=== PATIENT | male | born 1955 ===

== ENCOUNTER → 2020-09-26 09:09 | Outpatient (CLI) | payer BC, SELFPAY ==
[2020-09-26 17:04] LABS: SARS-CoV-2 RNA PCR Negative
== END ==
PROVIDERS: PCP Emergency Medicine; Visit Provider Emergency Medicine
DX: Z20.822 Contact with and (suspected) exposure to COVID-19 (principal); R05 Cough
CPT/HCPCS: C9803; U0003; U0005

== ENCOUNTER → 2020-12-04 02:23 | Outpatient (CLI) | payer BC, SELFPAY ==
[2020-12-04 17:52] LABS: SARS-CoV-2 RNA PCR Negative
== END ==
PROVIDERS: PCP Emergency Medicine; Visit Provider Internal Medicine Critical Care Medicine
DX: R68.89 Other general symptoms and signs (principal); Z20.822 Contact with and (suspected) exposure to COVID-19
CPT/HCPCS: C9803; U0003; U0005

== ENCOUNTER 2020-12-06 09:21 | Outpatient (CLI) | payer BC, SELFPAY ==
--- NOTE | 2020-12-25 06:48 | WPDSLEEPSTUD ---
Sleep Study Date of Study: 12/06/20 Ordering Provider: Alison Valverde MD Interpreting Physician: Alison Valverde MD Sleep Study Type: Split Polysomnogram Height: 1.98 m Weight: 136.078 kg Body Mass Index: 34.7 Neck Circumference (inches): 17.5 [place]: 5 Reason for Sleep Study Long history of obstructive sleep apnea, now using APAP with good compliance however he is excessive ly sleepy Sleep History Enrico King is a 65 year old man who has had obstructive sleep apnea for over 18 years, and several months ago starting usin an autoPAP with return of his original symptoms including non refreshing sleep and excessive daytime sleepiness. He has excellent compliance. His apnea-hypopnea index is 3.9. He currently is sleepy in the afternoon and takes naps on the weekends when he can. He does not awaken from sleep feeling short of breath. He rarely awakens at night with heartburn, belching or coughing. Without his CPAP he snores constantly. Using his CPAP he never snores. He constantly snores loudly enough that others complain about it without using CPAP. He occasionally has trouble sleeping with a cold. He does not wake up gasping for breath at night. He frequently has breathing problems at night observed by others. He rarely sweats excessively at night. He does not notice his heart pounding or beating irregularly at night. He does not fall asleep during the day, does not fall asleep involuntarily or while driving. He does not fall asleep while exerting physical effort. he does not have loss of muscle tone with strong emotion. He occasionally has daytime difficulties due to excessive sleepiness [facility]. He does not feel paralyzed on waking or falling asleep. He frequently has vivid dreamlike scenes upon awakening or falling asleep. He does not feel afraid to go to sleep. He occasionally has nightmares. He frequently remembers his dreams. He rarely has racing thoughts. He does not feel sad or depressed. He rarely has anxiety. He occasionally has muscular tension and occasionally notices parts of his body jerking. He does not kick at night. He occasionally has crawling aching feelings in his legs and occasionally has leg cramps at night. He does not have morning jaw pain. He rarely grinds his teeth during sleep. He occasionally is bothered by pain during the day. He rarely is awakened by pain at night. He frequently wakes up feeling stiff in the morning. He rarely wakes up with sore achy muscles are pain in the neck and spine. He takes antacids regularly. Normal bedtime is 10:00 p.m. falling asleep within 15 minutes waking once at night to urinate and then he returns to sleep within 5 minutes. He wakes the morning at 6:00 a.m.. On the weekends he stays awake later 10:30 p.m. and wakes at 7 in the morning. He estimates getting 8 hours of sleep at night. He does not generally take naps in the afternoon or evening. A short nap is not refreshing. He is drowsy in the morning for 1 hour or longer. He feels better in the evening compared to the morning. Habits: Never smoked tobacco. Caffeine 3 servings a day. No alcohol or recreational drugs. [facility] Past Medical History Medical History (Updated 12/25/20 @ 07:07 by Alison Valverde MD) Basal cell carcinoma of nose GERD (gastroesophageal reflux disease) HLD (hyperlipidemia) Obstructive sleep apnea Screening PSA (prostate specific antigen) Family History Family History Father Hypertension, Onset Age: 54 Carcinoma of colon, Onset Age: 54 Mother Dementia Social History Social History Smoking status: Never smoker Alcohol intake: current Medications Home Medications Medication Instructions Recorded Confirmed Type aspirin 81 mg tablet,delayed 81 mg PO DAILY 04/29/19 03/23/20 History release cholecalciferol (vitamin D3) 50 2,
[2020-12-25 07:15] VITALS: BMI 34.7
== END 2020-12-07 06:20 | disposition home or self-care (01) ==
LOC: ANHCSM 09:23
PROVIDERS: PCP Emergency Medicine; Visit Provider Internal Medicine Critical Care Medicine
DX: G47.33 Obstructive sleep apnea (adult) (pediatric) (principal)
CPT/HCPCS: 95811

== ENCOUNTER 2021-06-18 11:03 | Inpatient (IN) | payer BC, SELFPAY ==
[2021-06-18] VITALS (17 sets, daily range): BP systolic 92–164; BP diastolic 43–91; PULSE 96–134; RESP 12–27; TEMP 36.6–40.5; O2SAT 95–100
--- NOTE | ~2021-06-18 | CT_ITS ---
EXAMINATION: CT abdomen pelvis wo con EXAM DATE: 06/18/2021 17:14 INDICATION: Urinary pain. History of urinary tract infections. TECHNIQUE: Spiral CT of the abdomen and pelvis was performed without contrast. Axial, coronal and sag ittal images were reviewed. The dose-length product (DLP) for this examination was 806.48 mGy-cm. T he exposure was tailored according to patient size (auto mA exposure control), and iterative reconstr uction (ASIR) was used as additional dose reduction technique. There is no prior study for compariso n. FINDINGS: There is a left renal cyst measuring 8.7 cm. There is no nephrolithiasis or hydronephrosis. There is moderate prostatomegaly, prostate measuring 6.3 cm transverse dimension. Bladder is only m ildly distended. Some diffuse bladder wall thickening, could indicate chronic cystitis. Acute cystiti s not excludable. The liver, spleen, adrenal glands and pancreas are unremarkable. Gallbladder is u nremarkable. No biliary obstruction. There is no retroperitoneal or pelvic lymphadenopathy. There is mild scattered arteriosclerotic disease. The appendix is normal. The stomach and small bowel are unremarkable. There is expected amount of c olonic stool. No free intraperitoneal gas. The heart is normal in size. There are no pericardial or pleural effusions. The lung bases are unremarkable. There are no osteoblastic or osteolytic les ions identified. IMPRESSION: 1. No nephrolithiasis, hydronephrosis or acute intra-abdominal findings. 2. Moderate prostatomegaly. Mild diffuse bladder wall thickening, could indicate chronic cystitis. Reviewed, dictated and finalized at location G. F ASSISTANT IMPRESSION: 1. No nephrolithiasis, hydronephrosis or acute intra-abdominal findings. 2. Moderate prostatomegaly. Mild diffuse bladder wall thickening, could indica te chronic cystitis.
--- NOTE | ~2021-06-18 | XR_ITS ---
XR chest 1V DATE: 06/18/2021 17:10 INDICATION: Fever. Urinary tract infection, dysuria, frequency. Dizziness. History of hypertension. TECHNIQUE: AP chest COMPARISON: None FINDINGS: Normal heart size. No hilar or mediastinal enlargement. No pulmonary infiltrate or consolid ation, pleural effusion or pulmonary vascular congestion or pneumothorax is detected. IMPRESSION: No active cardiopulmonary disease Reviewed, dictated and finalized at location B. MANAGEMENT DIRECTOR
[2021-06-18 12:33] LABS: Add Urine Microscopic? YES; Appearance Urine Cloudy (Clear); Bilirubin Urine Negative (Negative); Blood Urine 1+ (Negative); Color Urine Yellow (Yellow); Glucose Urine UA Negative (Negative); Ketones Urine Negative (Negative); Leukocyte Esterase Ur 3+ LEU/UL (Negative); Mucus Urine Rare /lpf; Nitrate Urine Negative (Negative); Protein Urine 2+ mg/dL (Negative); RBC Urine >75 /hpf (0-2); Urobilinogen Urine Negative mg/dL (<2.0); WBC Clumps Urine Present /HPF; WBC Urine >75 /hpf
--- NOTE | 2021-06-18 15:43 | ECG_ITS ---
Measurements Intervals [place] Rate: 105 P: 34 [place]: 138 QRS: 23 QRSD: 114 T: 18 QT: 354 QTc: 469 Interpretive Statements SINUS TACHYCARDIA INTRAVENTRICULAR CONDUCTION DELAY EARLY PRECORDIAL R/S TRANSITION BORDERLINE ECG Electronically Signed On 06-18-2021 20:23:55 [employer]ANJO REPAIRER by Gibson Oneal D.O.
[2021-06-18 16:14] LABS: Basophils Percent Auto 0.2 % (0.2-1.2); Hematocrit 43.5 % (42.0-52.0); Hemoglobin 14.8 g/dL (14.0-18.0); Immature Granulocyte Absolute 0.06 K/mm3 (0.00-0.031); Immature Granulocyte Percent A 0.5 % (0-0.5); Lymphocytes Absolute Auto 0.94 K/mm3 (0.9-3.2); Lymphocytes Percent Auto 7.1 % (18.3-44.2); Mean Corpuscular Hemoglobin 31.6 pg (26-34); Mean Corpuscular Volume 92.8 fl (80-100); Mean Platelet Volume 8.4 fl (7.4-10.4); Monocytes Absolute Auto 0.9 K/mm3 (0.1-0.6); Neutrophils Absolute Auto 11.2 K/mm3 (1.3-6.7); Neutrophils Percent Auto 85.2 % (45.5-73.1); Platelet Count Result 153 k/mm3 (150-375); Red Blood Count 4.69 M/mm3 (4.6-6.20); White Blood Count 13.2 K/mm3 (4.5-10.0)
[2021-06-18 16:24] LABS: Lactic Acid Reflex 1.6 mmol/L (0.7-2.1); Prothrombin Time 13.5 Seconds (11.1-14.7)
[2021-06-18 16:25] LABS: Partial Thromboplastin Time 30.5 SECONDS (22.3-36.8)
[2021-06-18 16:41] LABS: Troponin I < 0.012 ng/mL (0.000-0.034)
[2021-06-18] MEDS: SODIUM CHLORIDE 0.9% IV 1,000 ML 999 ML (17:18)
[2021-06-18] MEDS: SODIUM CHLORIDE 0.9% IV 1,000 ML 999 ML IV CONT (17:27)
--- NOTE | 2021-06-18 18:06 | ED.GENADULT ---
HPI - General Adult General Chief complaint: Fever Stated complaint: htn Time Seen by Provider: 06/18/21 15:44 Source: patient and RN notes reviewed Mode of arrival: ambulatory Limitations: no limitations History of Present Illness HPI narrative: Patient is a 66-year-old male who presents to emergency department for evaluation of fever chills body aches has had some urinary frequency as well over the course of the last 2 days saw primary care today and then presented to the emergency department for evaluation patient notes no vomiting diarrhea denies any URI symptoms was prescribed Macrobid by his physician but has not started it he also notes that he felt fatigued and was concerned that he felt as though his heart were beating fast is another reason that he presents Related Data Home Medications Medication Instructions Recorded Confirmed aspirin 81 mg tablet,delayed 81 mg PO DAILY 04/29/19 02/02/21 release cholecalciferol (vitamin D3) 50 2,000 unit PO DAILY 04/29/19 02/02/21 mcg (2,000 unit) tablet omeprazole 40 mg capsule,delayed 40 mg PO .Daily before a meal cap 04/29/19 02/02/21 release omega-3 fatty acids 1,000 mg 1,000 mg PO DAILY 07/10/20 02/02/21 capsule Allergies Allergy/AdvReac Type Severity Reaction Status Date / Time No Known Allergies Allergy Unknown Verified 06/18/21 10:49 Review of Systems Review of Systems: All systems reviewed & are unremarkable except as noted in HPI and below PMFSH Past Medical History Medical History Basal cell carcinoma of nose GERD (gastroesophageal reflux disease) HLD (hyperlipidemia) Obstructive sleep apnea Screening PSA (prostate specific antigen) Family History Family History Father Hypertension, Onset Age: 54 Carcinoma of colon, Onset Age: 54 Mother Dementia Social History Social History Smoking status: Never smoker Alcohol intake: current Exam Narrative: GENERAL: Ill-appearing, well-nourished, patient in no acute distress. HEAD: Normocephalic, atraumatic. EYES: PERRLA and EOMI. ENT: Nares clear, no rhinorrhea or epistaxis. Mucous membranes moist. NECK: Supple. No adenopathy or masses. CHEST: Clear to auscultation. No respiratory distress. No wheezes rales or rhonchi HEART: Regular rate and rhythm. No murmur heard. Normal peripheral pulses. ABDOMEN: Soft, nontender, nondistended EXTREMITIES: Normal range of motion. No edema. SKIN: Warm, dry, no rash. NEURO: No focal deficits. Alert and oriented x3. Cranial nerves II through XII grossly intact PSYCH: Normal mood and affect. Course Course Emergency Course: Patient was hydrated given IV antibiotic will be placed in hospital for urinary tract infection he is afebrile at this time feeling better his heart rate has improved he is aware of his findings treatment plan diagnosis no high risk changes in the CT image Consultations Consultation #1: Spoke with the hospitalist regarding this patient they have agreed to accept the patient Date: 06/18/21 Time: 18:17 Vital Signs Vital signs: Vital Signs Temperature 101.7 F H 06/18/21 11:47 Pulse Rate 130 H 06/18/21 11:47 Respiratory Rate 20 06/18/21 11:47 Blood Pressure 164/91 H 06/18/21 11:47 Pulse Oximetry 100 06/18/21 11:47 Temperature 101.7 F H 06/18/21 11:47 Pulse Rate 130 H 06/18/21 11:47 Respiratory Rate 20 06/18/21 11:47 Blood Pressure 164/91 H 06/18/21 11:47 Pulse Oximetry 100 06/18/21 11:47 Medical Decision Making [facility] Narrative Medical decision making narrative: Patient presented with fever chills body aches for the last 2 days found to have urinary tract infection given fluids and IV antibiotics to be placed in hospital overnight he is agreeing to the treatment plan and has had improvement with interventions Vital Signs
[2021-06-18 18:41] LABS: SARS-CoV-2 RNA PCR Negative
[2021-06-18] MEDS: IBUPROFEN IV 800 MG/200 ML 800 MG/200 ML BAG 400 MG IVPB (19:15)
[2021-06-18] MEDS: ONDANSETRON INJ 4 MG/2 ML VIAL IV PUSH (19:40)
[2021-06-18 19:54] LABS: Alanine Aminotransferase 106 U/L (4-50); Alkaline Phosphatase 68 U/L (38-126); Anion Gap 9 mmol/L (8-16); Aspartate Amino Transferase 52 U/L (17-59); Bilirubin,Total 1.2 mg/dL (0.2-1.3); Blood Urea Nitrogen 14 mg/dL (9-20); Calcium 9.6 mg/dL (8.4-10.2); Carbon Dioxide 26 mmol/L (22-30); Chloride 100 mmol/L (98-107); Estimated CRCL calculation 115 ml/min; Estimated Glomerular Filt Rate > 60; Glucose 159 mg/dL (65-110); Potassium 3.7 mmol/L (3.4-5.0); Sodium 135 mmol/L (137-145)
--- NOTE | 2021-06-18 20:38 | PC.NURSE ---
Patient requested to use the restroom. Front Office Representative to bedside to disconnect patient. Patient ambulated to the restroom located in his room without difficulty. Front Office Representative changed patient's bedsheets and gave patient a clean down because he was soaked in sweat. Patient then laid back into bed, reconnected to pulse ox, blood pressure, and cardiac monitors.
--- NOTE | 2021-06-18 21:07 | PM.IMHP ---
H&P: HPI History of Present Illness Date/Time: 06/18/21 21:07 this is a 66-year-old male patient who came to the emergency room with complaints of fever chills and body aches. The patient stated that the head of his penis with sore and that he was having urinary frequency with urgency and burning. This is been going on over the course of the last 2 days. The patient did see his primary care doctor who prescribed Macrobid for him. Patient's stated that he felt that his heart was beating fast. Patient's heart rate was 122 with respiratory rate of 27 his blood pressure got down at 92 / 47. The patient was given 4 boluses of IV fluid. He was also given ibuprofen for the fever. He was given IV Tylenol as well. The patient was started on Rocephin blood and urine cultures are pending. Abdominal pelvis CT was read as no nephrolithiasis, hydronephrosis or acute intra-abdominal findings. Moderate prostatomegaly mild diffuse bladder wall thickening could indicate chronic cystitis. Chest x-ray was read as no acute cardiopulmonary disease. Chest x-ray was read as no acute cardiopulmonary disease. COVID test was negative . The patient is being admitted to observation status on the date of service of 06/18/2021 Chief Complaint: Fever and chills Review of Systems Review of Systems: All systems reviewed & are unremarkable except as noted in HPI and below Constitutional: Constitutional: Reports as per HPI and Reports no additional constitutional complaints Eyes: Eyes: Reports as per HPI and Reports no additional eye complaints ENT: Reports system reviewed and no additional complaints, except as documented and Reports Normal hearing present Cardiovascular: Cardiovascular: Reports no additional cardiovascular complaints Respiratory: Respiratory: Reports no additional respiratory complaints and Reports no additional respiratory complaints Gastrointestinal: Gastrointestinal: Reports as per HPI and Reports no additional gastrointestinal complaints Musculoskeletal: Musculoskeletal: Reports no additional musculoskeletal complaints Integumentary/Breasts: Skin/Breast: Reports system reviewed and no additional complaints, except as docu and Reports as per HPI Neurologic: Reports system reviewed and no additional complaints, except as documented, Reports as per HPI and Reports Normal hearing present Psychiatric: Psychiatric: Reports no additional psychiatric complaints and Reports as per HPI Endocrine: Endocrine: Reports no additional endocrine complaints Hematologic/Lymphatic: Hematologic/Lymphatic: Reports no additional hematologic/lymphatic complaints Allergic/Immunologic: Allergic/Immunologic: Reports no additional allergic/immunologic complaints PMFSH Past Medical History Medical History (Updated 06/18/21 @ 22:15 by Maryjane Kay NP) Basal cell carcinoma of nose GERD (gastroesophageal reflux disease) HLD (hyperlipidemia) Hypertension Obstructive sleep apnea ADRIEN on CPAP Screening PSA (prostate specific antigen) Surgical History Surgical History (Updated 06/18/21 @ 22:05 by Maryjane Kay NP) History of removal of pigmented skin lesion S/P shoulder surgery Family History Family History Father Hypertension, Onset Age: 54 Carcinoma of colon, Onset Age: 54 Mother Dementia Social History Social History (Updated 06/18/21 @ 22:06 by Maryjane Kay NP) Social History: The patient lives with his who is a durable power pain coordinator for healthcare. The patient has 2 children. Who occasionally drinks some alcohol maybe 2 beers a week. He works for a car [employer]. Lifelong nonsmoker. Code status full code Smoking status: Never smoker Alcohol intake: current Meds Home Medications and Allergies Home Medications Medication Instructions Recorded Confirmed Type aspirin 81 mg tablet,delayed 81 mg PO DAILY 04/29/19 02/02/21 History r
--- NOTE | 2021-06-18 21:50 | ADMGEN ---
This patient, Enrico King, was admitted to 3 [facility] Surg Room 321-02. Patient/family oriented to hospital policies and general routines including ID bracelet, bed and alarms, visiting hours, pain management, procedures, bathroom and other care routines, personal items, smoking policy, room service/diet, and visiting hours. Information on how to activate the Rapid Response Team has been discussed. Patient/Family are encouraged to report perceived risks to care and to ask questions if they do not understand what they are told or what they should do.
[2021-06-18] MEDS: LACTATED RINGERS 1,000 ML 75 ML IV CONT (22:42)
[2021-06-19] VITALS (8 sets, daily range): BP systolic 135–158; BP diastolic 63–82; PULSE 92–117; RESP 16–20; TEMP 36.7–38.2; O2SAT 95–98
[2021-06-19] MEDS: FAMOTIDINE 20 MG/2 ML VIAL IV PUSH ×3 (00:59→20:06)
[2021-06-19 06:32] LABS: Basophils Percent Auto 0.2 % (0.2-1.2); Hematocrit 38.9 % (42.0-52.0); Hemoglobin 13.1 g/dL (14.0-18.0); Immature Granulocyte Absolute 0.15 K/mm3 (0.00-0.031); Lymphocytes Percent Auto 5.5 % (18.3-44.2); Mean Corpuscular HGB Conc 33.7 g/dl (32-36); Mean Corpuscular Hemoglobin 31.5 pg (26-34); Mean Corpuscular Volume 93.5 fl (80-100); Mean Platelet Volume 8.7 fl (7.4-10.4); Monocytes Absolute Auto 1.1 K/mm3 (0.1-0.6); Monocytes Percent Auto 7.3 % (2.6-8.5); Neutrophils Absolute Auto 12.5 K/mm3 (1.3-6.7); Platelet Count Result 128 k/mm3 (150-375); Red Blood Count 4.16 M/mm3 (4.6-6.20); Red Cell Distribution Width 13.3 % (11.5-14.5); White Blood Count 14.6 K/mm3 (4.5-10.0)
[2021-06-19 06:44] LABS: Anion Gap 4 mmol/L (8-16); Blood Urea Nitrogen 15 mg/dL (9-20); Calcium 8.7 mg/dL (8.4-10.2); Carbon Dioxide 27 mmol/L (22-30); Chloride 105 mmol/L (98-107); Estimated CRCL calculation 128 ml/min; Estimated Glomerular Filt Rate > 60; Glucose 163 mg/dL (65-110); Lactate Dehydrogenase 394 U/L (313-618); Magnesium 1.8 mg/dL (1.6-2.3); Potassium 3.5 mmol/L (3.4-5.0); Sodium 136 mmol/L (137-145)
[2021-06-19 06:45] LABS: D Dimer 0.42 ug/mL (<0.48)
[2021-06-19 08:38] LABS: Free T4 Free Thyroxine Reflex 0.73 ng/dL (0.78-2.19)
[2021-06-19] MEDS: ENOXAPARIN 40 MG/0.4 ML SYRINGE SUB-Q (09:07)
--- NOTE | 2021-06-19 15:24 | PM.IMPN ---
Progress Note: A&P Assessment and Plan (1) UTI (urinary tract infection): Qualifiers: Urinary tract infection type: site unspecified Hematuria presence: without hematuria Qualified Code(s): N39.0 - Urinary tract infection, site not specified Code(s): N39.0 - Urinary tract infection, site not specified Status: Acute Assessment and Plan: Continue with Rocephin. Urine and blood cultures are pending. 06/19/2021 interval history: patient is 66-year-old male present with urinary symptom is found to have UTI being treated with ceftriaxone, will follow-up on urine and blood culture, patient states feeling much better compared to when he arrived currently denies any fever or chills. (2) Hypertension: Code(s): I10 - Essential (primary) hypertension Status: Chronic Assessment and Plan: Patient's blood pressure is soft at this time so we need to hold his blood pressure medicine. (3) Restless legs syndrome (RLS): Code(s): G25.81 - Restless legs syndrome Status: Acute Assessment and Plan: Awaiting medication reconciliation. (4) Obstructive sleep apnea: Code(s): G47.33 - Obstructive sleep apnea (adult) (pediatric) Status: Acute Assessment and Plan: auto titrate CPAP (5) HLD (hyperlipidemia): Qualifiers: Hyperlipidemia type: mixed hyperlipidemia Qualified Code(s): E78.2 - Mixed hyperlipidemia Code(s): E78.5 - Hyperlipidemia, unspecified Status: Chronic Assessment and Plan: Continue with atorvastatin (6) BPH (benign prostatic hyperplasia): Qualifiers: Lower urinary tract symptom presence: symptoms present Lower urinary tract symptom detail: weak urinary stream Qualified Code(s): N40.1 - Benign prostatic hyperplasia with lower urinary tract symptoms; R39.12 - Poor urinary stream Code(s): N40.0 - Benign prostatic hyperplasia without lower urinary tract symptoms Status: Acute Assessment and Plan: Continue with tamsulosin (7) GERD (gastroesophageal reflux disease): Qualifiers: Esophagitis presence: without esophagitis Qualified Code(s): K21.9 - Gastro-esophageal reflux disease without esophagitis Code(s): K21.9 - Gastro-esophageal reflux disease without esophagitis Status: Acute Assessment and Plan: Continue with omeprazole Subjective Date/time seen: 06/19/21 15:24 HPI: this is a 66-year-old male patient who came to the emergency room with complaints of fever chills and body aches. The patient stated that the head of his penis with sore and that he was having urinary frequency with urgency and burning. This is been going on over the course of the last 2 days. The patient did see his primary care doctor who prescribed Macrobid for him. Patient's stated that he felt that his heart was beating fast. Patient's heart rate was 122 with respiratory rate of 27 his blood pressure got down at 92 / 47. The patient was given 4 boluses of IV fluid. He was also given ibuprofen for the fever. He was given IV Tylenol as well. The patient was started on Rocephin blood and urine cultures are pending. Abdominal pelvis CT was read as no nephrolithiasis, hydronephrosis or acute intra-abdominal findings. Moderate prostatomegaly mild diffuse bladder wall thickening could indicate chronic cystitis. Chest x-ray was read as no acute cardiopulmonary disease. Chest x-ray was read as no acute cardiopulmonary disease. COVID test was negative . The patient is being admitted to observation status on the date of service of 06/18/2021 Chief Complaint: Fever and chills. 06/19/2021 interval history: patient is 66-year-old male present with urinary symptom is found to have UTI being treated with ceftriaxone, will follow-up on urine and blood culture, patient states feeling much better compared to when he arrived currently denies any fever or chills. Review of Systems Review of Sy
[2021-06-19] MEDS: cefTRIAXone 2 GM in SODIUM CHLORIDE 0.9% IV 100 ML 200 ML IVPB (17:21)
--- NOTE | 2021-06-19 23:54 | PCRCNOTE ---
Pt did not want to use CPAP tonight, but will resume using tomorrow night
[2021-06-20] MEDS: LACTATED RINGERS 1,000 ML 75 ML IV CONT (01:25)
[2021-06-20 05:39] VITALS: BP 141/79; PULSE 100; RESP 16; TEMP 36.9; O2SAT 96
[2021-06-20] MEDS: FAMOTIDINE 20 MG/2 ML VIAL IV PUSH ×2 (09:55→20:26)
[2021-06-20] MEDS: ENOXAPARIN 40 MG/0.4 ML SYRINGE SUB-Q (09:55)
--- NOTE | 2021-06-20 13:48 | PM.IMPN ---
Progress Note: A&P Assessment and Plan (1) UTI (urinary tract infection): Qualifiers: Urinary tract infection type: site unspecified Hematuria presence: without hematuria Qualified Code(s): N39.0 - Urinary tract infection, site not specified Code(s): N39.0 - Urinary tract infection, site not specified Status: Acute Assessment and Plan: Continue with Rocephin. Urine and blood cultures are pending. 06/19/2021 interval history: patient is 66-year-old male present with urinary symptom is found to have UTI being treated with ceftriaxone, will follow-up on urine and blood culture, patient states feeling much better compared to when he arrived currently denies any fever or chills. 06/20/2021 interval history: patient is 66-year-old male present with urinary symptom is found to have UTI urine culture is growing E coli sensitivities pending, being treated with ceftriaxone, will follow-up on urine and blood culture, patient states feeling much better compared to when he arrived currently denies any fever or chills. (2) Hypertension: Code(s): I10 - Essential (primary) hypertension Status: Chronic Assessment and Plan: Patient's blood pressure is soft at this time so we need to hold his blood pressure medicine. (3) Restless legs syndrome (RLS): Code(s): G25.81 - Restless legs syndrome Status: Acute Assessment and Plan: Awaiting medication reconciliation. (4) Obstructive sleep apnea: Code(s): G47.33 - Obstructive sleep apnea (adult) (pediatric) Status: Acute Assessment and Plan: auto titrate CPAP (5) HLD (hyperlipidemia): Qualifiers: Hyperlipidemia type: mixed hyperlipidemia Qualified Code(s): E78.2 - Mixed hyperlipidemia Code(s): E78.5 - Hyperlipidemia, unspecified Status: Chronic Assessment and Plan: Continue with atorvastatin (6) BPH (benign prostatic hyperplasia): Qualifiers: Lower urinary tract symptom presence: symptoms present Lower urinary tract symptom detail: weak urinary stream Qualified Code(s): N40.1 - Benign prostatic hyperplasia with lower urinary tract symptoms; R39.12 - Poor urinary stream Code(s): N40.0 - Benign prostatic hyperplasia without lower urinary tract symptoms Status: Acute Assessment and Plan: Continue with tamsulosin (7) GERD (gastroesophageal reflux disease): Qualifiers: Esophagitis presence: without esophagitis Qualified Code(s): K21.9 - Gastro-esophageal reflux disease without esophagitis Code(s): K21.9 - Gastro-esophageal reflux disease without esophagitis Status: Acute Assessment and Plan: Continue with omeprazole Subjective Date/time seen: 06/20/21 13:48 06/19/2021 interval history: patient is 66-year-old male present with urinary symptom is found to have UTI being treated with ceftriaxone, will follow-up on urine and blood culture, patient states feeling much better compared to when he arrived currently denies any fever or chills. 06/20/2021 interval history: patient is 66-year-old male present with urinary symptom is found to have UTI urine culture is growing E coli sensitivities pending, being treated with ceftriaxone, will follow-up on urine and blood culture, patient states feeling much better compared to when he arrived currently denies any fever or chills. Review of Systems Review of Systems: All systems reviewed & are unremarkable except as noted in HPI and below Exam Narrative: Patient is comfortable, NAD HEENT: eyes are clear and none icteric LUNGS: normal respiratory effort ABD: distended Lower extremities: no edema SKIN: nonjaundiced Neuro: grossly intact. Objective Data Vital Signs Vital Signs: Vital Signs - 24 hr 06/19/21 14:55 06/19/21 16:48 06/19/21 20:13 Temperature 98.1 F 99.1 F Pulse Rate 114 H 99 Respiratory Rate 20 20 Blood Pressure 139/65 135/63 Pulse Oximetr
[2021-06-20 14:55] VITALS: BP 138/74; PULSE 102; RESP 18; TEMP 37.3; O2SAT 99
[2021-06-20] MEDS: cefTRIAXone 2 GM in SODIUM CHLORIDE 0.9% IV 100 ML 200 ML IVPB (16:36)
[2021-06-20] MEDS: polyethylene glycoL 3350 17 GM POWD.PACK PO (16:42)
[2021-06-20 22:00] VITALS: BP 130/63; PULSE 84; RESP 20; TEMP 36.8; O2SAT 98
[2021-06-20 22:47] VITALS: O2SAT 96
[2021-06-20 22:48] VITALS: PULSE 96; RESP 23; O2SAT 98
[2021-06-21 06:00] VITALS: BP 133/75; PULSE 82; RESP 16; TEMP 36.4; O2SAT 98
[2021-06-21] MEDS: LACTATED RINGERS 1,000 ML 75 ML IV CONT ×2 (06:11→08:57)
[2021-06-21] MEDS: FAMOTIDINE 20 MG/2 ML VIAL IV PUSH (08:57)
[2021-06-21] MEDS: ENOXAPARIN 40 MG/0.4 ML SYRINGE SUB-Q (08:57)
--- NOTE | 2021-06-21 11:05 | PM.DS ---
DS: Admitting Diagnosis Discharge Date 06/21/2021 Admitting Diagnosis fever and chills DS: Discharge Diagnosis Discharge Diagnosis (1) UTI (urinary tract infection): Qualifiers: Urinary tract infection type: site unspecified Hematuria presence: without hematuria Qualified Code(s): N39.0 - Urinary tract infection, site not specified Code(s): N39.0 - Urinary tract infection, site not specified Status: Acute Assessment and Plan: Continue with Rocephin. Urine and blood cultures are pending. 06/19/2021 interval history: patient is 66-year-old male present with urinary symptom is found to have UTI being treated with ceftriaxone, will follow-up on urine and blood culture, patient states feeling much better compared to when he arrived currently denies any fever or chills. 06/20/2021 interval history: patient is 66-year-old male present with urinary symptom is found to have UTI urine culture is growing E coli sensitivities pending, being treated with ceftriaxone, will follow-up on urine and blood culture, patient states feeling much better compared to when he arrived currently denies any fever or chills. (2) Hypertension: Code(s): I10 - Essential (primary) hypertension Status: Chronic Assessment and Plan: Patient's blood pressure is soft at this time so we need to hold his blood pressure medicine. (3) Restless legs syndrome (RLS): Code(s): G25.81 - Restless legs syndrome Status: Acute Assessment and Plan: Awaiting medication reconciliation. (4) Obstructive sleep apnea: Code(s): G47.33 - Obstructive sleep apnea (adult) (pediatric) Status: Acute Assessment and Plan: auto titrate CPAP (5) HLD (hyperlipidemia): Qualifiers: Hyperlipidemia type: mixed hyperlipidemia Qualified Code(s): E78.2 - Mixed hyperlipidemia Code(s): E78.5 - Hyperlipidemia, unspecified Status: Chronic Assessment and Plan: Continue with atorvastatin (6) BPH (benign prostatic hyperplasia): Qualifiers: Lower urinary tract symptom presence: symptoms present Lower urinary tract symptom detail: weak urinary stream Qualified Code(s): N40.1 - Benign prostatic hyperplasia with lower urinary tract symptoms; R39.12 - Poor urinary stream Code(s): N40.0 - Benign prostatic hyperplasia without lower urinary tract symptoms Status: Acute Assessment and Plan: Continue with tamsulosin (7) GERD (gastroesophageal reflux disease): Qualifiers: Esophagitis presence: without esophagitis Qualified Code(s): K21.9 - Gastro-esophageal reflux disease without esophagitis Code(s): K21.9 - Gastro-esophageal reflux disease without esophagitis Status: Acute Assessment and Plan: Continue with omeprazole DS: Summary Hospital Course Reason for hospitalization: this is a 66-year-old male patient who came to the emergency room with complaints of fever chills and body aches. The patient stated that the head of his penis with sore and that he was having urinary frequency with urgency and burning. This is been going on over the course of the last 2 days. The patient did see his primary care doctor who prescribed Macrobid for him. Patient's stated that he felt that his heart was beating fast. Patient's heart rate was 122 with respiratory rate of 27 his blood pressure got down at 92 / 47. The patient was given 4 boluses of IV fluid. He was also given ibuprofen for the fever. He was given IV Tylenol as well. The patient was started on Rocephin blood and urine cultures are pending. Abdominal pelvis CT was read as no nephrolithiasis, hydronephrosis or acute intra-abdominal findings. Moderate prostatomegaly mild diffuse bladder wall thickening could indicate chronic cystitis. Chest x-ray was read as no acute cardiopulmonary disease. Chest x-ray was read as no acute cardiopulmonary disease. COVID test was negative . The
== END 2021-06-21 13:40 | disposition home or self-care (01) | DRG 690 ==
LOC: ANHED 18:18 → ANH3MEDSUR 21:10
PROVIDERS: Emergency Medicine; Emergency Medicine Emergency Medical Services; Nurse Practitioner; Admitting Provider Internal Medicine; Emergency Provider Emergency Medicine; PCP Emergency Medicine; Visit Provider Internal Medicine
DX: N39.0 Urinary tract infection, site not specified (principal); I10 Essential (primary) hypertension; G25.81 Restless legs syndrome; Z79.899 Other long term (current) drug therapy; G47.33 Obstructive sleep apnea (adult) (pediatric); E78.2 Mixed hyperlipidemia; N40.1 Benign prostatic hyperplasia with lower urinary tract symptoms; R39.12 Poor urinary stream; K21.9 Gastro-esophageal reflux disease without esophagitis; Z20.822 Contact with and (suspected) exposure to COVID-19
CPT/HCPCS: 36415; 71045; 74176; 80048; 80053; 81001; 82728; 83605; 83615; 83735; 84439; 84443; 84484; 85025; 85380; 85610; 85730; 86140; 87040; 87077; 87086; 87186; 93005; 96361; 96365; 96367; 96372; 96375; 96376; 99285; C9803; G0378; J0131; J0696; J1650; J1741; J2405; J7030; J7120; U0003; U0005

== ENCOUNTER 2021-11-14 14:32 | Outpatient (CLI) | payer BC, SELFPAY ==
--- NOTE | 2021-11-14 14:49 | ECG_ITS ---
Measurements Intervals [place] Rate: 89 P: 62 MN: 144 QRS: 39 QRSD: 110 T: 54 QT: 376 QTc: 459 Interpretive Statements SINUS RHYTHM WITH FREQUENT VENTRICULAR PREMATURE COMPLEXES ABNORMAL RHYTHM ECG COMPARED TO ECG 06/18/2021 17:23:33 THE RATE IS SLOWER AND VENTRICULAR TRIGEMINY IS PRESENT Electronically Signed On 11-14-2021 18:09:41 CDT by Shawna Bassett M.D.
== END 2021-11-14 14:33 | disposition home or self-care (01) ==
LOC: ANHCARD 14:35
PROVIDERS: PCP Emergency Medicine; Visit Provider Emergency Medicine
DX: R00.2 Palpitations (principal); I49.3 Ventricular premature depolarization
CPT/HCPCS: 93005